=== PATIENT | male | born 1955 | race Caucasian/White ===

== ENCOUNTER 2020-07-31 14:10 | Outpatient (CLI) | payer OTHER, SELFPAY ==
--- NOTE | 2020-07-31 14:14 | ECG_ITS ---
Measurements Intervals [place] Rate: 74 P: 51 UT: 196 QRS: 17 QRSD: 106 T: 28 QT: 382 QTc: 426 Interpretive Statements SINUS RHYTHM BASELINE ARTIFACT- I, II, III, AVR, AVL, AVF, V4-V5 NORMAL ECG Electronically Signed On 07-31-2020 14:29:49 [employer] by Edi Rowland D.O.
== END 2020-07-31 14:11 | disposition home or self-care (01) ==
LOC: ANHSURGERY 14:14
PROVIDERS: PCP Family Medicine; Visit Provider Dentist
DX: Z01.810 Encounter for preprocedural cardiovascular examination (principal); E78.00 Pure hypercholesterolemia, unspecified
CPT/HCPCS: 93005

== ENCOUNTER 2020-08-03 01:55 | Outpatient (CLI) | payer OTHER, SELFPAY ==
[2020-08-03 18:52] LABS: SARS-CoV-2 RNA PCR Positive
== END 2020-08-03 01:56 | disposition home or self-care (01) ==
LOC: ANHCOVIDDT 01:55
PROVIDERS: PCP Family Medicine; Visit Provider Dentist
DX: Z01.812 Encounter for preprocedural laboratory examination (principal); U07.1 COVID-19
CPT/HCPCS: 87635; C9803; U0003

== ENCOUNTER → 2021-01-11 00:16 | Outpatient (CLI) | payer OTHER, SELFPAY ==
[2021-01-11 18:48] LABS: SARS-CoV-2 RNA PCR Negative
== END ==
PROVIDERS: PCP Family Medicine; Visit Provider Dentist
DX: Z01.812 Encounter for preprocedural laboratory examination (principal); Z20.822 Contact with and (suspected) exposure to COVID-19
CPT/HCPCS: C9803; U0003; U0005

== ENCOUNTER 2021-01-14 01:10 | Day surgery (SDC) | payer OTHER, SELFPAY ==
[2020-07-31 11:02] VITALS: BMI 34.4
[2021-01-11 09:21] VITALS: BMI 34.4
[2021-01-14] VITALS (7 sets, daily range): BP systolic 110–162; BP diastolic 64–97; PULSE 65–75; RESP 16–20; TEMP 36.1–36.3; O2SAT 92–98
[2021-01-14] MEDS: LACTATED RINGERS 1,000 ML 30 ML IV CONT (08:00)
--- NOTE | 2021-01-14 08:03 | WPDHPUPDATE1 ---
History and Physical Update Update Date/Time: 01/14/21 08:03 History and Physical has been reviewed, including an updated exam of the patient. There are NO changes in the patient's condition. Risks, benefits, and alternatives have been discussed and questions answered. Patient agrees to proceed with procedure.
--- NOTE | 2021-01-14 08:03 | PM.IMHP ---
H&P: HPI History of Present Illness Date/Time: 01/14/21 08:03 wants implants Chief Complaint: wants teeth PMFSH Social History Social History Smoking packs per day: 1.5 Smoking cigarettes per day: 30.0 Years smoked: 45 Smoking pack-years: 67.50 Smoking status: Former smoker Tobacco type: cigarettes Additional smoking assessment comments: 08/28/18 Alcohol intake: current Drinks per week: 20 Alcohol use details: BEERS Substance use: never Substance use type: does not use Living arrangements: with family Spiritual care concerns: No Meds Home Medications and Allergies Home Medications Medication Instructions Recorded Confirmed Type propranolol 80 mg BID 07/31/20 01/11/21 History simvastatin 40 mg HS 07/31/20 01/11/21 History ascorbic acid (vitamin C) [Vitamin 500 mg PO DAILY 01/11/21 01/11/21 History C] aspirin [Adult Aspirin] 81 mg PO DAILY 01/11/21 01/11/21 History calcium 600 mg PO DAILY 01/11/21 01/11/21 History cholecalciferol (vitamin D3) 25 mcg PO DAILY 01/11/21 01/11/21 History [Vitamin D3] ferrous sulfate [iron] 325 mg PO DAILY 01/11/21 01/11/21 History ginseng 100 mg PO DAILY 01/11/21 01/11/21 History glucos sul [id number] 1 cap PO DAILY 01/11/21 01/11/21 History [Glucosamine Chondroitin] magnesium 30 mg PO DAILY 01/11/21 01/11/21 History omega-3 fatty acids [Fish Oil] 1,000 mg PO DAILY 01/11/21 01/11/21 History potassium 20 mg PO DAILY 01/11/21 01/11/21 History vitamin A 1,500 mcg PO DAILY 01/11/21 01/11/21 History vitamin B complex 1 tablet PO DAILY 01/11/21 01/11/21 History vitamin E 90 mg PO DAILY 01/11/21 01/11/21 History zinc 25 mg PO DAILY 01/11/21 01/11/21 History Allergies Allergy/AdvReac Type Severity Reaction Status Date / Time No Known Allergies Allergy Verified 01/11/21 09:18 Assessment and Plan Assessment and plan (1) Non-restorable tooth: Code(s): K08.89 - Other specified disorders of teeth and supporting structures Status: Acute Assessment and Plan: nonrestorable #2,3,18,32. Lesion left mandible. alveolar atrophy. SR 2,3,18,32, biopsy left mandible, possible grafting mandible
--- NOTE | 2021-01-14 08:06 | WPDANESEPPF ---
Anes - Initial Pre Proc Eval Procedure: Operation Date: 01/14/21 09:30 Proposed Procedures p Biopsy Left Mandible, Left And Right Bone Graft Mandible - Eleazar Gupta DMD s Extraction Of Four Teeth - Eleazar Gupta DMD Date/Time: 01/14/21 08:06 Surgeon: Eleazar Gupta DMD Pre Op Diagnosis: cyst/tumor mandible, bone loss Patient Data Age: 65 Gender: M Height: 1.78 m Weight: 109 kg Allergies Allergy/AdvReac Type Severity Reaction Status Date / Time No Known Allergies Allergy Verified 01/11/21 09:18 Home Medications Medication Instructions Recorded Confirmed Type propranolol 80 mg BID 07/31/20 01/11/21 History simvastatin 40 mg HS 07/31/20 01/11/21 History ascorbic acid (vitamin C) [Vitamin 500 mg PO DAILY 01/11/21 01/11/21 History C] aspirin [Adult Aspirin] 81 mg PO DAILY 01/11/21 01/11/21 History calcium 600 mg PO DAILY 01/11/21 01/11/21 History cholecalciferol (vitamin D3) 25 mcg PO DAILY 01/11/21 01/11/21 History [Vitamin D3] ferrous sulfate [iron] 325 mg PO DAILY 01/11/21 01/11/21 History ginseng 100 mg PO DAILY 01/11/21 01/11/21 History glucos sul [id number] 1 cap PO DAILY 01/11/21 01/11/21 History [Glucosamine Chondroitin] magnesium 30 mg PO DAILY 01/11/21 01/11/21 History omega-3 fatty acids [Fish Oil] 1,000 mg PO DAILY 01/11/21 01/11/21 History potassium 20 mg PO DAILY 01/11/21 01/11/21 History vitamin A 1,500 mcg PO DAILY 01/11/21 01/11/21 History vitamin B complex 1 tablet PO DAILY 01/11/21 01/11/21 History vitamin E 90 mg PO DAILY 01/11/21 01/11/21 History zinc 25 mg PO DAILY 01/11/21 01/11/21 History Patient hx anesthesia problems: none Family hx anesthesia problems: none PMFSH Past Medical History Medical History (Updated 01/14/21 @ 08:08 by Mike Yancey MD) ETOH abuse Hyperlipidemia Obesity Tremor Social History Social History Smoking packs per day: 1.5 Smoking cigarettes per day: 30.0 Years smoked: 45 Smoking pack-years: 67.50 Smoking status: Former smoker Tobacco type: cigarettes Additional smoking assessment comments: 08/28/18 Alcohol intake: current Drinks per week: 20 Alcohol use details: BEERS Substance use: never Substance use type: does not use Living arrangements: with family Spiritual care concerns: No Anes - Eval Final PreProcedure Day of Procedure 01/14/21 08:06 Patient weight: obese Heart: regular rate and rhythm Lungs: clear to auscultation and normal air movement Airway: Mallampati scale class II Neurological: alert and oriented Last oral intake: >/= 8 hours ASA classification: III Emergent: no Anesthetic plan: proceed Anesthesia type and monitoring: general GIVS Informed Consent: The patient's anesthetic plan and its attendant risks and benefits were discussed with the patient/family/POA. Questions were solicited and answers provided to the satisfaction of the patient/family/POA.
[2021-01-14] MEDS: CLINDAMYCIN 600 MG/D5W 50 ML 600 MG/50 ML PIGGYBACK 100 MG IVPB (09:28)
[2021-01-14] MEDS: LIDOCAINE 2%-EPI (FOR DENTAL BLOCK) 1.7 ML CARTRIDGE 6 ML INFILTRATE (10:43)
--- NOTE | 2021-01-14 10:49 | P.OP_ITS ---
Procedure Note - Detailed Date of procedure: 01/14/21 Pre-op diagnosis: cyst/tumor mandible, bone loss Surgeon: Eleazar Gupta, DMDPatient encountered in the operating room under the care of the Anesthesia Service to induce general anesthetic. Patient draped in usual manner for an intraoral surgical procedure. Oral cavity suctioned free of debris and throat pack was placed. Local anesthetic administered. Fifteen blade was used to make a circular incision in the area of teeth numbers 2 and 3 and a full-thickness flap was elevated to the buccal. Teeth numbers 2 and 3 were then removed using ring forceps technique without complication with minimal bone loss. Sockets curetted free of debris and irrigated with copious amounts of sterile saline. Gingiva tissues reapproximated with 4 0 chromic gut suture in interrupted fashion. Fifteen blade used to make a 3rd molar and crystal incision in the area of number 30 through 32. Full-thickness flap was elevated to the buccal. Two number 32 was removed with rongeur and elevator. A 1.5x9mm KLS Ismael screw was placed in the buccal in the a.m. number 30 bone graft placed and covered with membrane and tissues closed using 4 0 chromic gut suture in interrupted fashion. A drill was used to section the bridge from teeth numbers 18 through 20. Fifteen blade was used to make a distal releasing incision in the area of 18. A crestal incision was made and sulcular incision made in the area of the premolar. Full-thickness flaps was elevated to the buc erich. Tooth 18. Was removed using forceps and the socket curetted free of debris and irrigated. Drill was used to remove buccal bone over the lesion in the left mandible and a cystic lesion with yellow fluid was found. This lesion was enucleated from the bony crypt and sent for specimen. The wound was thoroughly irrigated. Bone graft was placed into the bony crypt and the tissue was closed using 4 0 chromic gut suture in interrupted fashion. The oral cavity was suctioned free of debris and the throat pack was removed. Gauze placed. Care the patient return to the anesthesia service who extubated the patient transferred to recovery in stable condition. Estimated blood loss 20cc local anesthetic was 6cc of 2% lidocaine with 100,000 epinephrine. Complications none. Preop diagnosis nonrestorable numbers 2,3,18,32, lesion left mandible, alveolar atrophy of mandible. postop diagnosis same.
== END 2021-01-14 12:27 | disposition home or self-care (01) ==
PROVIDERS: PCP Family Medicine; Visit Provider Dentist
PROC: (CPT 20240; principal; 2021-01-14 09:30)
PROC: (CPT 41899; 2021-01-14 09:30)
DX: K08.89 Other specified disorders of teeth and supporting structures (principal); M27.40 Unspecified cyst of jaw; K02.9 Dental caries, unspecified; Z87.891 Personal history of nicotine dependence
CPT/HCPCS: 41899 ×4; 21040; C9803; J0330; J1100; J1940; J2250; J2405; J2704; J3010; J7120; U0003; U0005